=== PATIENT | female | born 1990 | race African-American/Black ===

== ENCOUNTER 2017-02-06 15:41 | Emergency (ER) | payer SELFPAY ==
[~2017-02-06] VITALS: Ht 162.6 cm; Wt 56.2 kg
[2017-02-06 15:51] VITALS: BP 124/75
[2017-02-06 16:28] VITALS: BP 120/70
--- NOTE | 2017-02-06 19:30 | Emergency Room Report ---
History of Present Illness General Chief Complaint: Skin Rash/Abscess Source: Patient Present Illness HPI The patient is a 26 old female presenting for pain of the right wrist. She noticed a bump on the wrist 1 month prior which has increased in size. Pain is a 9/10 dull ache and does not radiate. Pain worse with touch. She states that it is soft and seems to move. She denies any injury to the area. She states that this has not happened in the past. She denies any numbness or tingling. She denies other symptoms including N, V, F, chills Allergies: Coded Allergies: No Known Allergies (Unverified , 02/06/17) Patient History Past Medical History: see triage record Pertinent Family History: none Last Menstrual Period: 02/02/17 Now: No Reviewed Nursing Documentation: PMH: Agreed, PSxH: Agreed Nursing Documentation-PMH Past Medical History: No Stated History Review of Systems All Other Systems: negative except mentioned in HPI Physical Exam Vital Signs Date Time Temp Pulse Resp B/P (MAP) Pulse Ox O2 Delivery O2 Flow Rate FiO2 02/06/17 15:51 97.9 65 18 124/75 98 Room Air Sp02 EP Interpretation: reviewed, normal General Appearance: no apparent distress, alert, GCS 15, non-toxic Head: normocephalic, atraumatic Eyes: bilateral eye normal inspection, bilateral eye PERRL ENT: hearing grossly normal, normal pharynx, no angioedema, normal voice Neck: full range of motion, supple/symm/no masses Musculoskeletal: swelling - 2cm circular, soft cyst of the R dorsal mid wrist, tender - TTP over the R ganglion cyst Neurologic: alert, oriented x3, responsive, motor strength/tone normal, sensory intact, speech normal Psychiatric: judgement/insight normal, memory normal, mood/affect normal, no suicidal/homicidal ideation Skin: normal color, no rash, warm/dry, well hydrated Lymphatic: no adenopathy Medical Decision Making PA Attestation Dr. Holt is my supervising physician. Patient management was discussed with my supervising physician Diagnostic Impression: Primary Impression: Ganglion cyst of wrist Qualified Codes: M67.431 - Ganglion, right wrist ER Course The patient is a 26 old female presenting for pain of the right wrist. Ddx considered include but not limited to ganglion cyst, abscess, sprain/strain , fracture, contusion PE: vitals WNL. NAD Findings consistent with ganglion cyst The patient was informed of this. She is to followup with primary doctor for referral. She understands. ER precautions given Last Vital Signs Date Time Temp Pulse Resp B/P (MAP) Pulse Ox O2 Delivery O2 Flow Rate FiO2 02/06/17 16:28 97.9 64 18 120/70 98 Room Air Status: improved Disposition: HOME, SELF-CARE Condition: Improved Referrals: NOT CHOSEN IPA/MD,REFERRING (PCP) Patient Instructions: Ganglion Cyst Additional Instructions: I discussed my findings with the patient. All questions and concerns have been answered. Treatment and medication compliance have been addressed. I advised the patient that they need to follow up with PMD in 3-5 days. Return to ED if symptoms worsen, new symptoms arise, or if needed for any reason. Patient verbalized understanding of discharge instructions. The patient was informed she needs to obtain referral for hand surgeon for surgical removal. LIZZ ANGEL Feb 06, 2017 19:30
== END 2017-02-06 16:33 | disposition home or self-care (01) ==
LOC: EMR 16:00
DX: M67.431 Ganglion, right wrist (principal)
CPT/HCPCS: 99282